=== PATIENT | male | born 1950 | race Caucasian/White ===

== ENCOUNTER 2021-04-03 17:00 | Outpatient (CLI) | payer MEDICARE, OTHER ==
--- NOTE | 2021-04-04 01:07 | XRAY Report ---
PROCEDURE: Shoulder 3 View BILAT INDICATIONS: SHOULDER PAIN TECHNIQUE: 3 views of the bilateral shoulders were acquired. COMPARISON: None. FINDINGS: Bones: No fractures or dislocations. No suspicious bony lesions. Visualized ribs appear intact. S evere bilateral glenohumeral joint space loss. Soft tissues: No suspicious soft tissue calcifications. IMPRESSION: 1. Severe bilateral glenohumeral joint joint space loss. 2. No evidence acute bony abnormality of the bilateral shoulders. If clinical suspicion and/or symptoms persist, further assessment with repeat plain films or advanced imaging (e.g., CT, MRI, or bone scan) may be helpful for further assessment. Reviewed by: Kevin Causey MD on 04/04/2021 1:05 AM PDT Approved by: Kevin Causey MD on 04/04/2021 1:05 AM PDT Station ID: [email or web address]
== END 2021-04-03 17:01 | disposition home or self-care (01) ==
LOC: DI.S 17:00
PROVIDERS: ATTEND Family Medicine
DX: M19.011 Primary osteoarthritis, right shoulder (principal); M19.012 Primary osteoarthritis, left shoulder

== ENCOUNTER 2021-10-28 09:29 | Emergency (ER) | payer MEDICARE, OTHER ==
[2021-10-28 09:42] VITALS: BP 146/73
--- NOTE | 2021-10-28 11:49 | ED Physician Documentation ---
PD HPI URI - Stated complaint Stated Complaint: RT EAR PX - Chief complaint Chief Complaint: Heent - History obtained from History obtained from: Patient - History of Present Illness Timing - onset: How many weeks ago (2) Timing duration: Weeks (2) Timing details: Gradual onset, Waxing and waning Associated symptoms: Swollen nodes, Other (has had pain around outer ear for couple of weeks, particularly the tragus area, with development of sore and redness/swelling. Only the single sore, and no pain to rest of face/scalp.). No: Fever, Chills, Sore throat, Dry cough Similar symptoms before: Has not had sx before Recently seen: Clinic (walk in and Rx Cipro for skin infection/cellulitis without improvement over the past 3 days, but is worse.) Review of Systems Constitutional: denies: Fever, Chills Eyes: denies: Photophobia, Irritation Ears: reports: Ear pain. denies: Loss of hearing, Drainage/discharge Throat: denies: Sore throat Respiratory: denies: Cough GI: denies: Nausea, Vomiting Neurologic: denies: Focal weakness, Numbness PD PAST MEDICAL HISTORY - Past Medical History Cardiovascular: None Respiratory: None Endocrine/Autoimmune: None - Present Medications Home Medications: Ambulatory Orders Medication Instructions Recorded Confirmed Doxycycline Hyclate 100 mg PO BID 7 Days #14 cap 10/28/21 Mupirocin 2% Oint [Bactroban 2% 1 applic TOP TID #15 gm 10/28/21 Oint] cephALEXin [Keflex] 500 mg PO TID 5 Days #15 cap 10/28/21 - Allergies Allergies/Adverse Reactions: Allergies Allergy/AdvReac Type Severity Reaction Status Date / Time No Known Drug Allergies Allergy Verified 10/28/21 09:33 - Living Situation Living Arrangement: reports: At home PD ED PE NORMAL - Vitals Vital signs reviewed: Yes - General General: Alert and oriented X 3, Well developed/nourished - HEENT HEENT: Pharynx benign. No: Ears normal (TMs and ear canals are normal. The right ear shows a small 1/2 cm ulceration with crusted drainage on tragus, with surrounding redness and some swelling of skin. No other areas of rash and no tenderness on rest of face/scalp. ) - Neck Neck: Supple, no meningeal sign, Other (mild right submental adenopathy that is tender. ) Results - Vitals Vitals: Oxygen O2 Source Room air PD MEDICAL DECISION MAKING - ED course Complexity details: considered differential (he was not aware of a sore there prior, so current ulcerative lesion presume just infection, but will want to f/u exam if still a sore after infection clears. Not improved with Cipro, and presume staph appearing infection, so will change to doxy and mupirocin. To add Keflex if still not better. ), d/w patient Departure - Departure Disposition: 01 Home, Self Care Clinical Impression: Infected skin of earlobe Qualifiers: Laterality: right Qualified Code(s): H60.391 - Other infective otitis externa, right ear Condition: Stable Record reviewed to determine appropriate education?: Yes Prescriptions: Mupirocin 2% Oint [Bactroban 2% Oint] 1 applic TOP TID #15 gm Doxycycline Hyclate 100 mg PO BID 7 Days #14 cap cephALEXin [Keflex] 500 mg PO TID 5 Days #15 cap Comments: Since your wound is not improving on the current antibiotic, I would have you stop the ciprofloxacin. Instead change to doxycycline twice daily for the next week. Also cleanse the wound on the ear 2-3 times daily and apply mupirocin topical antibiotic lightly to the area. Tylenol every 4-6 hours if needed for pains. If you are not having notable improvement over the next 2 to 3 days or still worsening, then add cephalexin antibiotic as well. Recheck if still worsening despite those. If the infection seems to clear but you are still left with an unhealing sore on the ear, then it may subsequently want to have biopsy or evaluation by a manager stylist. If it heals and is gone completely then no further evaluation needed. I transmitted your prescription to [facility] in [place]. Discharge Date/Time: 10/28/21 12:28
[2021-10-28] MEDS ORDERED: MUPIROCIN 2% OINT 1 GM TOP STA (12:14)
[2021-10-28] MEDS ORDERED: DOXYCYCLINE 100 MG TABLET PO STA (12:14)
== END 2021-10-28 12:28 | disposition home or self-care (01) ==
LOC: ED 09:29
DX: H60.391 Other infective otitis externa, right ear (principal)
CPT/HCPCS: 99283; A9270

== ENCOUNTER 2024-04-24 15:04 | Inpatient (IN) ==
--- NOTE | 2024-04-24 15:22 | ED Physician Documentation ---
History of Present Illness Stated complaint Stated Complaint: DIZZINESS Chief complaint Chief Complaint: Neuro Additonal information Additional information: 73-year-old male with history presents with episode of RUE weakness and slurred speech, about 2 hours ago that lasted a few minutes. Spouse and friend Dr. Alexander at bedside who is a retired physician assists with history. Patient had episode of R arm weakness and slurred speech 2 hours ago that was a few minutes long. In addition, in the setting of poor PO intake since yesterday night, he has had feeling of disequilibrium today since around 1000. No trauma. No lightheadedness, syncope, vertigo, F/C, N/V, hearing changes, though he may have had blurry vision bilaterally. No CP or SOB or back or flank pain. No aspirin, antiplatelet agents or anticoagulation. He has been on steroids for radiation cystitis in the setting of recent prostate cancer treatment with radiation. He is on hormone based cancer treatment as well. No other focal numbness or weakness beyond above, with slurred speech/RUE symptoms resolved. Review of Systems ROS Constitutional: no fever, no chills Eyes: no visual disturbance, no discharge Ears, Nose, Mouth, Throat: no rhinorrhea, no sore throat Cardiovascular: no chest pain, no palpitations Respiratory: no cough, no shortness of breath Gastrointestinal: no abdominal pain, no vomiting, no diarrhea Genitourinary: no dysuria, no hematuria Musculoskeletal: no back pain, no neck stiffness Skin: no rash, no wound Neurological: + focal weakness, no focal numbness Meds/Allgy Home Medications Ambulatory Orders Medication Instructions Recorded Confirmed cephalexin 500 mg capsule 500 mg PO TID 5 days #15 caps 10/28/21 doxycycline hyclate 100 mg capsule 100 mg PO BID 7 days #14 caps 10/28/21 mupirocin 2 % topical ointment 1 applic topical TID #15 grams 10/28/21 Allergies Allergies Allergy/AdvReac Type Severity Reaction Status Date / Time No Known Drug Allergies Allergy Verified 04/24/24 15:14 [facility] Medical History Medical History (Updated 04/24/24 @ 17:25 by Theo Yip MD) Prostate cancer Social History Social History (Updated 04/24/24 @ 15:14 by Wenceslao Qiu, RNC, BSN) Smoking Status: Never smoker Living arrangement: At home Relationship: Do you feel safe in your home environment?: Yes Suffered physical, verbal, emotional, or financial abuse?: No ETOH Use: None Exam Exam Const: no acute distress, non toxic appearing; calm, conversant, pleasant though seems mildly confused Eyes: JAVIER LEWISMI ENT: mucous membranes moist Neck: supple, non-tender Resp: no respiratory distress, clear to auscultation bilaterally Card: regular rate and rhythm, no murmurs Abd: non tender diffusely, no rigidity or rebound or guarding Back: no T or L spine tenderness, no CVA tenderness bilaterally Extrem: no deformities, no swelling bilateral lower extremities, 2+ distal pulses all extremities Neuro: ANOx4. city magistrate 2-12 intact. No rotatory or vertical nystagmus. Normal tone all extremities. Sensation intact to light touch all extremities. No ankle clonus bilaterally. 5/5 motor strength all extremities. Normal FNF BUE; normal heel-mayorga test BLE. No pronator drift. No dysrathria. No neglect. Grossly normal cognition. Skin: no rash, warm and dry Results Vitals Vitals: Vital Signs - 24 hr 04/24/24 15:08 04/24/24 15:14 04/24/24 15:44 Temperature 36.8 C Pulse Rate 92 H 88 87 Respiratory Rate 20 18 18 Blood Pressure 177/97 H 171/91 H 171/91 H O2 Saturation 97 96 97 O2 Source Room air Room air Room air Pain Intensity 0 0 0 04/24/24 16:14 04/24/24 16:30 04/24/24 17:09 Temperature Pulse Rate 88 77 79 Respiratory Rate 17 18 18 Blood Pressure 171/91 H 149/85 H O2 Saturation 97 96 95 O2 Source Room air Room air Pain Intensity 0 0 0 Oxygen O2 Source Room air Labs Labs: Laboratory Tests 04/24/24 15:34 WBC 8.4 RBC 3.68 L Hgb 12.0 L Hct 35.0 L MCV 95.1 H MCH 32.6 H MCHC 34.3 RDW 13.0 Plt Count 142 MPV 8.4 Neut # (Auto) 7.1 H Lymph # (Auto) 0.5 L [place] # (Auto) 0.7 Eos # (Auto) 0.0 Baso # (Auto) 0.0 Absolute Nucleated RBC 0.00 Nucleated RBC % 0.0 PT 11.9 INR 1.1 APTT 20.8 L Sodium 132 L Potassium 3.6 Chloride 96 L Carbon Dioxide 30 Anion Gap 6.0 BUN 31 H Creatinine 0.8 Estimated GFR (MDRD) 94 Glucose 117 H Calcium 8.6 Total Bilirubin 0.6 AST 13 ALT 25 Alkaline Phosphatase 52 Troponin I High Sens 11.1 Total Protein 5.7 L Albumin 3.6 Globulin 2.1 Albumin/Globulin Ratio 1.7 PD Medical Decision Making ED course ED course: This patients presentation is most suggestive of TIA, with witnessed right upper extremity weakness and slurred speech starting at 2 hours ago that fully resolved. Patient also notes intermittent disequilibrium sensation since 10 AM today. Note he arrives outside clear thrombolytic window, but also has had clear improvement of symptoms, arguing against thrombolytics currently. No lateralizing signs on exam to suggest LVO/thrombectomy candidacy. Intravascular volume depletion, electrolyte derangements, RONNIE, viral syndrome could also be contributory, in a broad differential I have considered including not limited to these. I am giving fluids will obtain EKG, CBC, CMP, coags, troponin, chest x- ray, CT head, CT head and neck and will closely reassess. EKG: Normal sinus rhythm without acute ischemia or immediately concerning interval prolongation. Labs: CBC with mild anemia, no leukocytosis or thrombocytopenia. CMP with mild hyponatremia, hypochloremia, BUN elevation, all suggestive of intravascular volume depletion. No LFT elevation. Troponin WNL, no chest pain. No hypoglycemia. INR WNL, PTT low. I agree with radiology reads of imaging on my independent review of imaging. CXR: "FINDINGS: Surgical changes and devices: Left shoulder arthroplasty. Lungs and pleura: No pleural effusions or pneumothorax. Lungs are clear. Mediastinum: Mediastinal contours appear normal. Heart size is normal. Bones and chest wall: No suspicious bony lesions. Overlying soft tissues appear unremarkable. IMPRESSION: No acute cardiopulmonary process. Reviewed by: Robby Bangura MD on 04/24/2024 4:12 PM PDT" I agree with radiology reads of imaging on my independent review of imaging. hCT: "FINDINGS: Image quality: Suboptimal due to motion artifact at the vertex of the cranium. CSF spaces: Basal cisterns are patent. No extra-axial fluid collections. Ventricles are normal in size and shape. Brain: No midline shift. No intracranial masses or hemorrhage. Freedman-white matter interface is normal. Skull and face: Calvarium and visualized facial bones are intact, without suspicious lesions. Sinuses: Visualized sinuses and mastoids are clear. IMPRESSION: No acute intracranial pathology. Reviewed by: Robby Bangura MD on 04/24/2024 4:58 PM PDT" CTA head/neck: "FINDINGS: Image quality: Suboptimal due to motion artifact. HEAD CT: CSF Spaces: Basal cisterns are patent. No extra-axial fluid collections. No significant change from same day head CT. HEAD CT ANGIOGRAPHY: Anterior circulation: Intracranial internal carotid arteries are normal in size and flow. The flow within the paired anterior cerebral arteries is normal and symmetric. The flow within the middle cerebral arteries is normal and symmetric. The anterior communicating artery is seen. No aneurysms are seen. Posterior circulation: Visualized portions of the vertebral arteries demonstrate normal caliber, and join to form a normal appearing basilar artery. Flow within the posterior cerebral arteries is normal and symmetric. No aneurysms are seen. NECK CT ANGIOGRAPHY: Carotid system: The great vessels demonstrate a conventional anatomy as they arise from the aortic arch. The origins of the common carotid arteries appear patent. The common carotid arteries demonstrate normal caliber and courses. The bifurcation regions are both widely patent. The internal carotid arteries demonstrate normal calibers and courses. Posterior circulation: The origins of the vertebral arteries both appear widely patent. The more superior extracranial portions of both vertebral arteries also demonstrate normal courses and calibers. They join to form a normal appearing basilar artery. Soft tissues: Visualized neck soft tissues demonstrate no suspicious abnormalities. Bones: No suspicious bony lesions. Visualized cervical spine appears normally aligned. IMPRESSION: Suboptimal due to motion artifact. No significant intracranial arterial abnormality is seen. No significant abnormality is seen within the arteries of the neck. The estimate of stenosis included in the report of the imaging study was calculated using the NASCET method Reviewed by: Robby Bangura MD on 04/24/2024 5:00 PM PDT" This remains most consistent with TIA in a patient who appears stable for admission here for further assessment inpatient, with consideration as available of echo, MRI, additional labs and telemetry. Intravascular following up lesion and steroid use could still be contributory to some of symptoms, and stroke also remains possible though again patient arrived outside thrombolytic window. Giving aspirin. In case this is a stroke, allowing permissive hypertension. I spoke with patient, family and their friend Dr. Alexander again; they agree with plan. I spoke with Dr. Raymond. Admitting in stable condition. Discharge Plan Discharge Patient Disposition: 66 [facility] DC/Xfer Clinical Impression: Neurological deficit, transient Prescriptions: No Action doxycycline hyclate 100 MG capsule 100 mg PO BID 7 Days Qty: 14 0RF cephalexin 500 MG capsule 500 mg PO TID 5 Days Qty: 15 0RF mupirocin 22 APPLIC/22 GM ointment 1 applic topical TID Qty: 15 0RF Print Language: Slovenian
[2024-04-24 15:40] LABS: EOSINOPHILS % (AUTO) 0.1 %; LYMPHOCYTES # (AUTO) 0.5 10^3/uL (1.5-3.5); LYMPHOCYTES % (AUTO) 5.9 %; MEAN CORPUSCULAR HEMOGLOBIN 32.6 pg (27.0-31.0); MEAN CORPUSCULAR HGB CONC 34.3 g/dL (32.0-36.0); MEAN CORPUSCULAR VOLUME 95.1 fL (80.0-94.0); MEAN PLATELET VOLUME 8.4 fL (7.4-11.4); MONOCYTES # (AUTO) 0.7 10^3/uL (0.0-1.0); MONOCYTES % (AUTO) 8.3 %; NEUTROPHILS # (AUTO) 7.1 10^3/uL (1.5-6.6); NEUTROPHILS % (AUTO) 84.9 %; PLT - PLATELET COUNT 142 10^3/uL (130-450); RED BLOOD COUNT 3.68 10^6/uL (4.70-6.10); WHITE BLOOD COUNT 8.4 x10^3/uL (4.8-10.8)
[2024-04-24 15:50] LABS: PARTIAL THROMBOPLASTIN TIME 20.8 secs (24.9-33.3)
[2024-04-24 15:54] LABS: INR 1.1 (0.8-1.2); PT - PROTHROMBIN TIME 11.9 secs (9.9-12.6)
[2024-04-24 15:57] LABS: ALBUMIN 3.6 g/dL (3.2-5.5); ALBUMIN/GLOBULIN RATIO 1.7 (1.0-2.2); BILIRUBIN,TOTAL 0.6 mg/dL (0.2-1.0); CALCIUM 8.6 mg/dL (8.5-10.3); CREATININE 0.8 mg/dL (0.6-1.3); POTASSIUM 3.6 mmol/L (3.5-4.5); TOTAL PROTEIN 5.7 g/dL (6.4-8.9)
[2024-04-24] MEDS: SODIUM CHLORIDE 0.9% 500 ML IV STA (15:58)
[2024-04-24 16:02] LABS: TROPONIN I HIGH SENSITIVITY 11.1 ng/L (2.3-19.7)
[2024-04-24] MEDS ORDERED: iohexoL-300 100 ML VIAL ONE (16:09)
--- NOTE | 2024-04-24 16:13 | XRAY Report ---
PROCEDURE: XR Chest 1V INDICATIONS: TIA work up TECHNIQUE: One view of the chest was acquired. COMPARISON: None. FINDINGS: Surgical changes and devices: Left shoulder arthroplasty. Lungs and pleura: No pleural effusions or pneumothorax. Lungs are clear. Mediastinum: Mediastinal contours appear normal. Heart size is normal. Bones and chest wall: No suspicious bony lesions. Overlying soft tissues appear unremarkable. IMPRESSION: No acute cardiopulmonary process. Reviewed by: Robby Bangura MD on 04/24/2024 4:12 PM PDT Approved by: Robby Bangura MD on 04/24/2024 4:12 PM PDT Station ID: [email or web address]
--- NOTE | 2024-04-24 17:00 | CT Report ---
PROCEDURE: CT Head WO INDICATIONS: dizziness TECHNIQUE: Noncontrast 4.5 mm thick angled axial sections acquired from the foramen magnum to the vertex. For r adiation dose reduction, the following was used: automated exposure control, adjustment of mA and/or kV according to patient size. COMPARISON: None. FINDINGS: Image quality: Suboptimal due to motion artifact at the vertex of the cranium. CSF spaces: Basal cisterns are patent. No extra-axial fluid collections. Ventricles are normal in size and shape. Brain: No midline shift. No intracranial masses or hemorrhage. Freedman-white matter interface is norm al. Skull and face: Calvarium and visualized facial bones are intact, without suspicious lesions. Sinuses: Visualized sinuses and mastoids are clear. IMPRESSION: No acute intracranial pathology. Reviewed by: Robby Bangura MD on 04/24/2024 4:58 PM PDT Approved by: Rboby Bangura MD on 04/24/2024 4:58 PM PDT Station ID: [id number]
--- NOTE | 2024-04-24 17:02 | CT Report ---
PROCEDURE: CT Angio Head/Neck INDICATIONS: TIA work up; dizziness, RUE weakness/slurred speec TECHNIQUE: After the administration of intravenous contrast, 1 mm thick sections acquired from the aortic arch t hrough the [place] of [place]. 3-dimensional iivvsou-cbzoyvwwc-[id number] (MIP) and/or volume renderin g reformats were acquired of the central intracranial vasculature and neck separately. For radiation dose reduction, the following was used: automated exposure control, adjustment of mA and/or kV acco rding to patient size. CONTRAST: omni 300, 80 COMPARISON: None. FINDINGS: Image quality: Suboptimal due to motion artifact. HEAD CT: CSF Spaces: Basal cisterns are patent. No extra-axial fluid collections. No significant change fro m same day head CT. HEAD CT ANGIOGRAPHY: Anterior circulation: Intracranial internal carotid arteries are normal in size and flow. The flow within the paired anterior cerebral arteries is normal and symmetric. The flow within the middle cer ebral arteries is normal and symmetric. The anterior communicating artery is seen. No aneurysms are seen. Posterior circulation: Visualized portions of the vertebral arteries demonstrate normal caliber, and join to form a normal appearing basilar artery. Flow within the posterior cerebral arteries is norm al and symmetric. No aneurysms are seen. NECK CT ANGIOGRAPHY: Carotid system: The great vessels demonstrate a conventional anatomy as they arise from the aortic a rch. The origins of the common carotid arteries appear patent. The common carotid arteries demonstr ate normal caliber and courses. The bifurcation regions are both widely patent. The internal caroti d arteries demonstrate normal calibers and courses. Posterior circulation: The origins of the vertebral arteries both appear widely patent. The more emmanuel perior extracranial portions of both vertebral arteries also demonstrate normal courses and calibers. They join to form a normal appearing basilar artery. Soft tissues: Visualized neck soft tissues demonstrate no suspicious abnormalities. Bones: No suspicious bony lesions. Visualized cervical spine appears normally aligned. IMPRESSION: Suboptimal due to motion artifact. No significant intracranial arterial abnormality is seen. No significant abnormality is seen within the arteries of the neck. The estimate of stenosis included in the report of the imaging study was calculated using the NASCET method Reviewed by: Robby Bangura MD on 04/24/2024 5:00 PM PDT Approved by: Robby Bangura MD on 04/24/2024 5:00 PM PDT Station ID: [email or web address]
[2024-04-24] MEDS: iohexoL-300 100 ML VIAL IVP ONE (17:17)
--- NOTE | 2024-04-24 18:05 | HISTORY & PHYSICAL EXAMINATION ---
Chief Complaint Chief Complaint Chief Complaint: Dizziness, weakness History of Present Illness Admitted From Admitted From:: ED History Obtained From Records Reviewed: Yes History obtained from: Patient, at bedside Exam Limitations: none History of Present Illness HPI Comment/Other: 73-year-old male past medical history significant for prostate cancer with last radiation on 04 06 presents to the ER with generalized weakness, dizziness, confusion. He states that this started today, and that a friend noted that he had right-sided weakness. He denies fever, chills, chest pain, dyspnea, palpitations. He reports that he is chronically thirsty, and has been even more so today. He reports good appetite, and that he ate lunch today In the ER,CT head, CTA head and neck was performed which showed no acute acute abnormalities. He was noted to have a NA 132, CL 96, so it was thought that dehydration could be contributing to this. His symptoms resolved while in the ER, but given his lateralizing deficits he was deemed to be a high risk TIA workup and hospitalist was consulted for observation Meds/Allgy Home Medications Ambulatory Orders Medication Instructions Recorded Confirmed cephalexin 500 mg capsule 500 mg PO TID 5 days #15 caps 10/28/21 doxycycline hyclate 100 mg capsule 100 mg PO BID 7 days #14 caps 10/28/21 mupirocin 2 % topical ointment 1 applic topical TID #15 grams 10/28/21 Allergies Allergies Allergy/AdvReac Type Severity Reaction Status Date / Time No Known Drug Allergies Allergy Verified 04/24/24 15:14 [facility] Medical History Medical History (Updated 04/24/24 @ 18:11 by Homar Del Cid DNP) Prostate cancer Social History Social History (Updated 04/24/24 @ 15:14 by Wenceslao Qiu, RNC, BSN) Smoking Status: Never smoker Living arrangement: At home Relationship: Do you feel safe in your home environment?: Yes Suffered physical, verbal, emotional, or financial abuse?: No ETOH Use: None POLST Patient has POLST: No Review of Systems Status of ROS: 10 or more systems reviewed and unremarkable except as noted in history and below Constitutional Denies: Fever or Chills Eyes Denies: Pain or Irritation Ears, nose, mouth, and throat Reports: Hearing aids and Change in hearing (Hearing loss is getting worse); Denies: Neck pain Cardiovascular Denies: Irregular heart rate, chest pain, palpitations or shortness of breath with exertion Respiratory Denies: Shortness of breath or Cough Gastrointestinal Denies: Abdominal pain or Abdominal distention Genitourinary Reports: Urinary frequency and Urinary urgency (Complication of radiation); Denies: Painful urination Musculoskeletal Denies: Back pain or Neck pain Integumentary/Breast Denies: Rash Neurological Reports: General weakness, Focal weakness (Resolved right-sided weakness), Weakness in extremities (Resolved right-sided weakness) and Confusion; Denies: Headache Psychiatric Denies: Depression or Anxiety Endocrine Reports: Excessive thirst (Attributed to recent radiation, Medications for prostate cancer) Hematologic/Lymphatic Denies: Anemia or Easy bruising Prior Level of Functionality: Independent Exam Constitutional normal general appearance and no apparent distress HENMT normocephalic and head/scalp atraumatic Eyes PERRL Neck/C-Spine visual inspection normal Lymph no lymphadenopathy noted Chest inspection of chest normal and palpation of chest normal Respiratory breath sounds equal bilaterally and normal respiratory effort Cardiovascular normal heart rate noted and regular rhythm noted Gastrointestinal abdomen normal to inspection Protuberant, nontender abdomen Genitourinary bladder normal to palpation Extremities normal to inspection and normal to palpation 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 Suspect that neurologic deficits could be partially attributable to dehydration/hyponatremia (2) Prostate cancer: Plan: Continue home regimen after pharmacy review (3) Hyponatremia: Plan: NA 132 on initial chemistry Likely due to dietary insufficiency Received 1 L IVF in the ER 1 L NS over 8 hours BMP in a.m. Plan Discussed plan of care with patient and at bedside. Patient wishes to remain full code, including compressions and intubation. He names his as his surrogate decision-maker if he is incapable of making decisions. Patient reports he has not filled out a POLST form yet, so this will be provided to him Lab Results Lab results reviewed: Yes 04/24/24 15:34 04/24/24 15:34 Diagnostic Imaging Results Diagnostic Imaging Results: positive Final report reviewed Diagnostic Imaging Results Comments: CT, CTA head negative Core Measures Anticipated LOS I expect patient to be DC'd or transferred within 96 hours.: Yes Issues Hospital Issues and Management Plan: Observation for TIA. Symptoms resolved. MRI, echo DVT/VTE - Prophylaxis VTE/DVT Device ordered at admit?: No VTE/DVT Prophylaxis med ordered at admit?: Yes Stroke - Rehab Assessment Rehab services assessment to be ordered?: No Not Ordered - Medical Reason: Contraindicated (Back to baseline level of function)
[2024-04-24] MEDS ORDERED: ACETAMINOPHEN 325 MG TABLET PO PRN (18:32)
[2024-04-24] MEDS ORDERED: SODIUM CHLORIDE FLUSH 0.9% 10 ML SYRINGE IVP PRN (18:32)
[2024-04-24] MEDS: ASPIRIN 325 MG TABLET PO STA (19:02)
[2024-04-24] MEDS: SODIUM CHLORIDE 0.9% 1,000 ML IV SCH (19:02)
[2024-04-24] MEDS: ATORVASTATIN 40 MG TABLET PO SCH (22:03)
[2024-04-25] MEDS: SODIUM CHLORIDE FLUSH 0.9% 10 ML SYRINGE IVP SCH (01:05)
[2024-04-25 05:27] LABS: BASOPHILS % (AUTO) 0.2 %; EOSINOPHILS # (AUTO) 0.1 10^3/uL (0.0-0.7); HCT - HEMATOCRIT 35.1 % (42.0-52.0); HGB - HEMOGLOBIN 11.7 g/dL (14.0-18.0); LYMPHOCYTES # (AUTO) 0.4 10^3/uL (1.5-3.5); LYMPHOCYTES % (AUTO) 6.4 %; MEAN CORPUSCULAR HEMOGLOBIN 31.8 pg (27.0-31.0); MEAN CORPUSCULAR HGB CONC 33.3 g/dL (32.0-36.0); MEAN CORPUSCULAR VOLUME 95.4 fL (80.0-94.0); MEAN PLATELET VOLUME 8.3 fL (7.4-11.4); MONOCYTES # (AUTO) 0.5 10^3/uL (0.0-1.0); MONOCYTES % (AUTO) 7.8 %; NEUTROPHILS # (AUTO) 5.2 10^3/uL (1.5-6.6); NEUTROPHILS % (AUTO) 83.2 %; PLT - PLATELET COUNT 131 10^3/uL (130-450); RED BLOOD COUNT 3.68 10^6/uL (4.70-6.10); RED CELL DISTRIBUTION WIDTH 13.2 % (12.0-15.0); WHITE BLOOD COUNT 6.3 x10^3/uL (4.8-10.8)
[2024-04-25 05:48] LABS: CALCIUM 8.6 mg/dL (8.5-10.3); CREATININE 0.8 mg/dL (0.6-1.3); POTASSIUM 3.4 mmol/L (3.5-4.5)
[2024-04-25] MEDS: POTASSIUM CHLORIDE 20 MEQ TABLET PO ONE (07:50)
[2024-04-25] MEDS: CLOPIDOGREL 75 MG TABLET PO SCH (08:55)
[2024-04-25] MEDS: ENOXAPARIN 40 MG/0.4 ML SYRINGE SUBQ SCH (08:55)
--- NOTE | 2024-04-25 11:35 | PROVIDER PROGRESS NOTE ---
Subjective Prog Note Date Prog Note Date: 04/25/24 Subjective Pt reports feeling: Improved Subjective: He reports vague sensation changes that are intermittent in his head. No lateralizing deficits, overall feels much improved Current Medications Current Medications Current Medications: Current Medications Generic Name Dose Route Start Last Admin Trade Name Freq PRN Reason Stop Dose Admin Acetaminophen 650 mg 04/24/24 18:32 Acetaminophen 325 Mg Tablet PO Q4HR PRN Pain 1 to 4, or Fever Atorvastatin Calcium 40 mg 04/24/24 21:00 04/24/24 22:03 Atorvastatin 40 Mg Tablet PO 40 mg QPM FLORA Administration Clopidogrel Bisulfate 75 mg 04/25/24 09:00 04/25/24 08:55 Clopidogrel 75 Mg Tablet PO 75 mg DAILY FLORA Administration Enoxaparin Sodium 40 mg 04/25/24 09:00 04/25/24 08:55 Enoxaparin 40 Mg/0.4 Ml Syringe SUBQ 40 mg DAILY FLORA Administration Sodium Chloride 10 ml 04/24/24 18:32 Sodium Chloride Flush 0.9% 10 Ml Syringe IVP PRN PRN NEEDED PER PROVIDER ORDERS Sodium Chloride 10 ml 04/25/24 01:00 04/25/24 08:56 Sodium Chloride Flush 0.9% 10 Ml Syringe IVP 10 ml 0100,0900,1700 FLORA Administration Objective Vital Signs/Intake & Output Reviewed Vital Signs: Yes Vital Signs: Vital Signs x48h Temp Pulse Resp BP Pulse Ox 04/25/24 09:12 149/80 H 04/25/24 07:51 36.4 C L 70 16 155/87 H 98 04/25/24 06:00 36.6 C 66 18 138/72 H 95 Intake & Output: Intake & Output 04/23/24 04/24/24 04/25/24 04/26/24 05:59 05:59 05:59 05:59 Intake Total 1500 / 1500 720 / 720 Output Total 710 / 710 750 / 750 Balance 790 / 790 -30 / -30 Weight (kg) 116 kg Objective General Appearance: positive No acute distress and Alert Eyes Bilateral: positive Normal inspection and PERRL ENT: positive ENT inspection nml Neck: positive Nml inspection Respiratory: positive Chest non-tender and No respiratory distress Cardiovascular: positive Regular rate & rhythm Abdomen: positive Non-tender and No organomegaly Skin: positive Color nml Extremities: positive Non-tender Neurologic/Psychiatric: positive Oriented x3, CN's nml (2-12) and Sensation nml Lab Results 04/25/24 05:10 04/25/24 05:10 Other Labs: Lab Results x24hrs 04/25/24 04/24/24 Range/Units 05:10 15:34 WBC 6.3 8.4 (4.8-10.8) x10^3/uL RBC 3.68 L 3.68 L (4.70-6.10) 10^6/uL Hgb 11.7 L 12.0 L (14.0-18.0) g/dL Hct 35.1 L 35.0 L (42.0-52.0) % MCV 95.4 H 95.1 H (80.0-94.0) fL MCH 31.8 H 32.6 H (27.0-31.0) pg MCHC 33.3 34.3 (32.0-36.0) g/dL RDW 13.2 13.0 (12.0-15.0) % Plt Count 131 142 (130-450) 10^3/uL MPV 8.3 8.4 (7.4-11.4) fL Neut # (Auto) 5.2 7.1 H (1.5-6.6) 10^3/uL Lymph # (Auto) 0.4 L 0.5 L (1.5-3.5) 10^3/uL [place] # (Auto) 0.5 0.7 (0.0-1.0) 10^3/uL Eos # (Auto) 0.1 0.0 (0.0-0.7) 10^3/uL Baso # (Auto) 0.0 0.0 (0.0-0.1) 10^3/uL Absolute Nucleated RBC 0.00 0.00 x10^3/uL Nucleated RBC % 0.0 0.0 /100WBC PT 11.9 (9.9-12.6) secs INR 1.1 (0.8-1.2) APTT 20.8 L (24.9-33.3) secs Sodium 136 132 L (135-145) mmol/L Potassium 3.4 L 3.6 (3.5-4.5) mmol/L Chloride 101 96 L (101-111) mmol/L Carbon Dioxide 28 30 (21-32) mmol/L Anion Gap 7.0 6.0 (6-13) BUN 22 H 31 H (6-20) mg/dL Creatinine 0.8 0.8 (0.6-1.3) mg/dL Estimated GFR (MDRD) 94 94 (>89) Glucose 83 117 H (74-104) mg/dL Calcium 8.6 8.6 (8.5-10.3) mg/dL Total Bilirubin 0.6 (0.2-1.0) mg/dL AST 13 (10-42) IU/L ALT 25 (10-60) IU/L Alkaline Phosphatase 52 (42-121) IU/L Troponin I High Sens 11.1 (2.3-19.7) ng/L Total Protein 5.7 L (6.4-8.9) g/dL Albumin 3.6 (3.2-5.5) g/dL Globulin 2.1 (2.1-4.2) g/dL Albumin/Globulin Ratio 1.7 (1.0-2.2) Sepsis Event Note (H) Evaluation Current Stage of Sepsis: Ruled out Assessment/Plan Problem List (1) Neurological deficit, transient: Impression: Symptoms have greatly improved, he does report some vague sensation changes on the top of his head. Echo, MRI not available today Will change him to inpatient status so that I can obtain echo and MRI prior to discharge Okay to discharge after echo and MRI obtained (2) Hypokalemia: Impression: Ordered 40 mill equivalent p.o. KCl BMP in a.m. (3) Hyponatremia: Impression: Resolved after IVF (4) Prostate cancer: Impression: Continue home regimen after pharmacy verification Oncology follow-up at discharge I have discussed CODE STATUS, surrogate decision maker with him yesterday. Today, I provided him with a POLST form. His expressed concern that this was not necessary given he wanted to remain full code. I discussed the purpose of the POLST form, and how it will provide a legal document showing his wishes regardless of what they are. I told him it is not necessary to fill out a POLST form, but it is available for them if they wish to fill it out. I left the form with him
--- NOTE | 2024-04-25 12:19 | PHARMACY PROGRESS NOTE ---
Best Possible Medication History Admit Date and Time: 04/24/24 1734 Processed by: Pharmacy Medications reviewed in ED?: No Medication History completed: Yes Patient Interview: Completed Secondary Source(s): Prescription bottles, Spouse/Significant other, Other family member and Pharmacy records [facility] Statement: As the person ultimately responsible for medication therapy, providers are able to order a medication from an existing home medication list in [facility] via the "Reconcile Routine" prior to Confirmation of that medication by user support specialist. Such practice is discouraged except when the physician, in their clinical judgment, deems that a medical need exists for a medication without regard to previous use.
[2024-04-25] MEDS: predniSONE 5 MG TABLET PO SCH (12:29)
[2024-04-25] MEDS: TAMSULOSIN 0.4 MG CAPSULE PO SCH (12:29)
[2024-04-25] MEDS: dexAMETHasone 4 MG TABLET PO SCH (12:29)
[2024-04-25] MEDS: buPROPion XL 150 MG TABLET PO SCH (12:29)
[2024-04-25] MEDS ORDERED: ROSUVASTATIN 10 MG PO SCH (12:30)
[2024-04-25] MEDS: Abiraterone 250 mg tablet PO SCH (15:56)
[2024-04-26 05:47] LABS: BASOPHILS % (AUTO) 0.1 %; EOSINOPHILS % (AUTO) 0.1 %; HCT - HEMATOCRIT 37.9 % (42.0-52.0); HGB - HEMOGLOBIN 13.1 g/dL (14.0-18.0); LYMPHOCYTES # (AUTO) 0.3 10^3/uL (1.5-3.5); MEAN CORPUSCULAR HEMOGLOBIN 32.3 pg (27.0-31.0); MEAN CORPUSCULAR HGB CONC 34.6 g/dL (32.0-36.0); MEAN CORPUSCULAR VOLUME 93.3 fL (80.0-94.0); MEAN PLATELET VOLUME 8.5 fL (7.4-11.4); MONOCYTES # (AUTO) 0.5 10^3/uL (0.0-1.0); MONOCYTES % (AUTO) 6.9 %; NEUTROPHILS # (AUTO) 6.9 10^3/uL (1.5-6.6); NEUTROPHILS % (AUTO) 87.9 %; PLT - PLATELET COUNT 163 10^3/uL (130-450); RED BLOOD COUNT 4.06 10^6/uL (4.70-6.10); WHITE BLOOD COUNT 7.8 x10^3/uL (4.8-10.8)
[2024-04-26 06:02] LABS: CALCIUM 9.6 mg/dL (8.5-10.3); CREATININE 0.8 mg/dL (0.6-1.3); POTASSIUM 3.6 mmol/L (3.5-4.5)
[2024-04-26] MEDS: LEVOTHYROXINE 75 MCG TABLET PO SCH (06:06)
[2024-04-26 07:54] VITALS: O2SAT 98
--- NOTE | 2024-04-26 11:47 | MRI Report ---
PROCEDURE: MRI Brain WO INDICATIONS: TIA workup TECHNIQUE: Noncontrast axial T1 spin echo, axial T2 fast spin echo, sagittal and axial FLAIR, coronal T2 fast sp in echo, axial gradient echo, axial diffusion and ADC through the brain. COMPARISON: CT head without contrast and CTA head and neck dated 04/24/2024. FINDINGS: Image quality: Excellent. CSF Spaces: Basal cisterns are patent. No extra-axial fluid collections. Ventricles are normal in size and shape. Brain: No intracranial masses or hemorrhage. Freedman/white matter interface is normal. Brainstem appe ars normal. Diffusion-weighted images demonstrate no acute ischemic insult. No chronic ischemic ins ults. Normal intravascular flow voids are present. Skull and face: Calvarium has normal marrow signal. Orbits appear normal. Sinuses: Sinuses and mastoids are clear. IMPRESSION: 1. Negative brain MRI for patient age. No acute intracranial process. Reviewed by: Kevin Causey MD on 04/26/2024 11:46 AM PDT Approved by: Kevin Causey MD on 04/26/2024 11:46 AM PDT Station ID: [id number]
--- NOTE | 2024-04-26 13:41 | Discharge Summary ---
Discharge Summary Admit Date: 04/24/24 Discharge Date: 04/26/24 Discharging Provider: Homar Del Cid NP Primary Care Provider: Baljeet White Code Status: Attempt Resuscitation DIAGNOSES Admission Diagnoses: Transient ischemic attack Hyponatremia Prostate cancer Discharge Diagnoses with Status of Each Condition: Transient ischemic attackresolved Hyponatremiaresolved Prostate cancerchronic HPI History of Present Illness: 73-year-old male H significant for prostate cancer on radiation presented with generalized weakness, dizziness, confusion. He also reported episode ofRight- sided weakness which resolved quickly. In the ER, CT, CTA was performed which was negative for acute abnormality. He was noted to have a sodium of132, So he was initiated on IV fluids. He was placed in observation for TIA and mild hyponatremia. Due to lack of MRI, echo over the weekend, he was changed to inpatient status so he could have those test done before being discharged HOSPITAL COURSE Hospital Course: Admitted, telemetry, neurochecks. Was initially placed in observation, but was escalated to inpatient given lack of MRI/echo over the weekend. MRI and echo were performed. MRI negative, echo not read at time of discharge. He has been instructed to follow-up with primary care regarding this ALLERGIES Allergies Allergy/AdvReac Type Severity Reaction Status Date / Time No Known Drug Allergies Allergy Verified 04/24/24 15:14 MEDICATIONS Ambulatory Orders Medication Instructions Recorded Confirmed abiraterone 250 mg tablet 1,000 mg PO DAILY 04/25/24 04/25/24 bupropion HCl 300 mg 24 hr tablet, 300 mg PO DAILY 04/25/24 04/25/24 extended release dexamethasone 4 mg tablet 4 mg PO QDBREAKFAST 04/25/24 04/25/24 levothyroxine 150 mcg tablet 150 mcg PO QDAC 04/25/24 04/25/24 prednisone 5 mg tablet 10 mg PO DAILY 04/25/24 04/25/24 tamsulosin 0.4 mg capsule 0.8 mg PO DAILY 04/25/24 04/25/24 rosuvastatin 10 mg tablet 20 mg (2 x 10 mg) PO DAILY #60 tabs 04/26/24 04/25/24 PHYSICAL EXAM AT DISCHARGE General Appearance: positive No acute distress and Alert Eyes Bilateral: positive Normal inspection and PERRL ENT: positive ENT inspection nml Neck: positive Nml inspection Respiratory: positive Chest non-tender and No respiratory distress Cardiovascular: positive Regular rate & rhythm and No murmur Peripheral Pulses: positive 2+ Abdomen: positive Non-tender Skin: positive Color nml and No rash Extremities: positive Non-tender Neurologic/Psychiatric: positive Oriented x3 and CN's nml (2-12) LABS 04/26/24 05:34 04/26/24 05:34 DIAGNOSTIC IMAGING Diagnostic Imaging Results: Final report reviewed Diagnostic Imaging Results Comments: MRI brain no acute abnormalities SEPSIS Current Stage of Sepsis: Ruled out FOLLOW UP Follow Up: With PCP TIME SPENT Time Spent in Discharge (Minutes): 20 Discharge Plan Discharge Patient Disposition: Home, Self Care Condition: Good Medically Cleared Date:: 04/26/24 Prescriptions: Continued abiraterone 250 mg tablet 1,000 mg PO DAILY bupropion HCl 300 mg tablet extended release 24 hr 300 mg PO DAILY levothyroxine 150 mcg tablet 150 mcg PO QDAC dexamethasone 4 mg tablet 4 mg PO QDBREAKFAST Patient Comments: take 1 tablet by mouth with breakfast for 30 DAYS prednisone 5 mg tablet 10 mg PO DAILY Patient Comments: take 2 tablets by mouth once daily with food tamsulosin 0.4 mg capsule 0.8 mg PO DAILY Changed rosuvastatin 10 mg tablet 20 mg PO DAILY Qty: 60 0RF Activity Restrictions: No Restrictions Diet: Regular Health Concerns: You are a 73-year-old male with past medical history of prostate cancer who presented to the ER with some right-sided weakness as well asConfusion, dizziness, and overall generalized weakness. Your initial workup was negative except for a low sodium level, for which she received some IV fluids which corrected that. We were concerned for what is called a transient ischemic attack, otherwise known as a mini stroke. You were held in the hospital long enough for an MRI and an echocardiogram to be performed. Your MRI showed no acute abnormalities, and your echo was performed but has not been read yet. As we discussed, I would like for you to follow-up with your primary care provider and oncology. They will be the ones to direct any further care regarding the results of your echocardiogram. I would like for you to start taking a baby aspirin. As requested, I am not ordering this at discharge as it is available [id number] for very low cost. I am also increasing the dose of your statin. Please follow-up with your primary care provider regarding how long this should go on Plan of Treatment: Start taking aspirin Increased dose statin Follow-up Print Language: Greek Patient Instructions: TIA Stand Alone Forms: PCP List Follow-up Care: SHARONDA WHITE MD [Primary Care Provider] -
== END 2024-04-26 14:10 | disposition home or self-care (01) | DRG 69 ==
LOC: EDBD → MS2 15:04 → ED 15:04 → MS2 18:37
PROVIDERS: ADMIT Nurse Practitioner Acute Care; ATTEND Nurse Practitioner Acute Care
DX: E87.1 Hypo-osmolality and hyponatremia; C61 Malignant neoplasm of prostate; R29.818 Other symptoms and signs involving the nervous system; R63.1 Polydipsia; E87.6 Hypokalemia; D64.9 Anemia, unspecified; G45.9 Transient cerebral ischemic attack, unspecified; E86.0 Dehydration; E87.8 Other disorders of electrolyte and fluid balance, not elsewhere classified; R53.1 Weakness